=== PATIENT | female | born 1950 | race Caucasian/White ===

== ENCOUNTER 2016-09-08 04:01 | Inpatient (IN) | payer MEDICARE, BC ==
[~2016-09-08] VITALS: Ht 152.4 cm; Wt 73.6 kg
[~2016-09-08 04:01] MED LIST: BLOODPRESSURE PO; SIMVASTATIN5 MG PO; ZOLOFT100 MG PO
[2016-09-08 04:12] VITALS: BP 142/74
[2016-09-08 06:38] LABS: BASO % 0.4 % (0.0-1.0); EOS # 0.3 10*3/uL (0.0-0.4); EOS % 3.6 % (1.0-4.0); HEMATOCRIT 38.7 % (37.0-47.0); HEMOGLOBIN 12.8 g/dl (12.0-16.0); LYMPH # 1.1 10*3/uL (1.3-4.4); LYMPH % 14.5 % (27.0-41.0); MEAN CELL VOLUME 89.4 fl (81.0-99.0); MEAN CORPUSCULAR HGB 29.6 pg (27.0-31.0); MEAN CORPUSCULAR HGB CONC 33.1 g/dl (33.0-37.0); MEAN PLATELET VOLUME 9.9 fl (9.6-12.3); MONO # 0.5 10*3/uL (0.1-1.0); MONO % 5.9 % (3.0-9.0); NEUT # 5.9 10*3/uL (2.3-7.9); NEUT % 75.3 % (47.0-73.0); PLATELET COUNT AUTOMATED 142 10*3/uL (130-400); RED BLOOD COUNT 4.33 10*6/uL (4.10-5.10); RED CELL DISTRI WIDTH 13.9 % (0-14.5); WHITE BLOOD COUNT 7.8 10*3/uL (4.8-10.8)
[2016-09-08 06:49] LABS: BUN 16 mg/dl (7-24); C-REACTIVE PROTEIN 1.11 MG/DL (0-0.3); CARBON DIOXIDE 23 mmol/L (21-32); CHLORIDE 112 mmol/L (98-107); EST GLOM FILT AFRICAN AMERICAN > 60 ml/min; GLUCOSE 103 mg/dL (65-99); POTASSIUM 3.9 mmol/L (3.5-5.1); SODIUM 143 mmol/L (136-145)
[2016-09-08 07:05] VITALS: BP 125/65
[2016-09-08 07:19] LABS: INTERNATIONAL NORM RATIO 0.9 (2.0-3.5); PROTHROMBIN TIME 9.6 SECONDS (9.0-12.4)
[2016-09-08 07:22] LABS: ALBUMIN 3.5 gm/dl (3.1-4.5); ALKALINE PHOSPHATASE 107 U/L (45-117); BILIRUBIN, TOTAL 0.2 mg/dl (0.2-1.0); BUN 16 mg/dl (7-24); CARBON DIOXIDE 23 mmol/L (21-32); CHLORIDE 112 mmol/L (98-107); CHOLESTEROL 114 mg/dL (<200); EST GLOM FILT AFRICAN AMERICAN > 60 ml/min; HDL CHOLESTEROL 46 mg/dl (40-60); LDL CHOLESTEROL 11 mg/dL (9-159); MAGNESIUM 2.1 mg/dL (1.5-2.1); PHOSPHOROUS 2.7 mg/dL (2.5-4.9); POTASSIUM 3.9 mmol/L (3.5-5.1); SGOT/AST 20 IU/L (3-35); SGPT/ALT 29 U/L (12-78); SODIUM 144 mmol/L (136-145); TOTAL PROTEIN 6.8 gm/dL (6.4-8.2); TRIGLYCERIDES 286 mg/dl (<150); VLDL CHOLESTEROL 57 mg/dL (6-40)
[2016-09-08 07:36] LABS: GLUCOSE 101 mg/dL (65-99)
[2016-09-08 07:52] LABS: HEMOGLOBIN A1c 5.9 % (4.8-5.6)
[2016-09-08 08:00] VITALS: BP 137/70
[2016-09-08 08:12] LABS: FOLIC ACID > 24.00 ng/mL (>5.38)
[2016-09-08] MEDS ORDERED: LISINOPRIL10 M1 PO (09:36)
[2016-09-08] MEDS ORDERED: LIPITOR10 MG PO (09:37)
[2016-09-08] MEDS ORDERED: METAXALONE400 MG PO (09:39)
[2016-09-08 12:00] VITALS: BP 131/59
[2016-09-08 16:00] VITALS: BP 114/57
[2016-09-08 20:00] VITALS: BP 125/58
[2016-09-09] VITALS: BP 138/68
[2016-09-09 07:46] VITALS: BP 114/53
[2016-09-09 11:59] VITALS: BP 125/58
[2016-09-09] MEDS ORDERED: CYCLOBENZAPRINE10 MG PO (13:16)
[2016-09-09] MEDS ORDERED: PREDNISONE10 MG PO (13:16)
[2016-09-09] MEDS ORDERED: ACETAMINOPHEN-H1 TA2 PO (13:16)
== END 2016-09-09 14:48 | disposition home or self-care (01) | DRG 552 ==
LOC: ED 04:01 → EDHOLD 06:28 → 4E 06:28
PROVIDERS: Emergency Medicine Emergency Medical Services; Hospitalist
DX: M54.30 Sciatica, unspecified side (principal); I10 Essential (primary) hypertension; F32.9 Major depressive disorder, single episode, unspecified; M54.9 Dorsalgia, unspecified; Z87.81 Personal history of (healed) traumatic fracture; Z90.49 Acquired absence of other specified parts of digestive tract; Z83.6 Family history of other diseases of the respiratory system; Z83.3 Family history of diabetes mellitus; Z79.899 Other long term (current) drug therapy; Z72.0 Tobacco use

== ENCOUNTER 2022-08-17 13:37 | Emergency (ER) | payer MEDICARE ==
[~2022-08-17] VITALS: Ht 152.4 cm; Wt 65.8 kg
[~2022-08-17 13:37] MED LIST changes: +ACETAMINOPHEN-H1 TA2 PO; +CYCLOBENZAPRINE10 MG PO; +LIPITOR10 MG PO; +LISINOPRIL10 M1 PO; +METAXALONE400 MG PO; +PREDNISONE10 MG PO
== END 2022-08-17 16:30 | disposition home or self-care (01) ==
LOC: ED 13:37
DX: S61.412A Laceration without foreign body of left hand, initial encounter (principal); I10 Essential (primary) hypertension; E78.00 Pure hypercholesterolemia, unspecified; Z90.49 Acquired absence of other specified parts of digestive tract; Z98.890 Other specified postprocedural states; W26.0XXA Contact with knife, initial encounter; Y93.89 Activity, other specified; Y92.89 Other specified places as the place of occurrence of the external cause; Y99.8 Other external cause status

== ENCOUNTER 2025-01-18 20:55 | Emergency (ER) | payer MEDICARE ==
[~2025-01-18] VITALS: Ht 152.4 cm; Wt 55.3 kg
[2025-01-18] MEDS ORDERED: IOHEXOL 300 MG/ML 100 ML VIAL IV ONE (22:15)
[2025-01-18 22:35] LABS: BASO # 0.0 10*3/uL (0.0-0.1); BASO % 0.2 % (0.0-1.0); EOS # 0.1 10*3/uL (0.0-0.4); EOS % 0.6 % (1.0-4.0); MEAN CELL VOLUME 81.8 fl (81.0-99.0); MEAN CORPUSCULAR HGB 24.1 pg (27.0-31.0); MEAN PLATELET VOLUME 8.6 fl (9.6-12.3); MONO # 0.5 10*3/uL (0.1-1.0); MONO % 3.4 % (3.0-9.0); NEUT # 14.0 10*3/uL (2.3-7.9); NEUT % 89.6 % (47.0-73.0); NUCLEATED RED BLOOD CELL 0.0 % (0.0-0.0); NUCLEATED RED BLOOD CELL 0.0 10*3/uL (0.0-0.0); PLATELET COUNT AUTOMATED 282 10*3/uL (130-400); RED CELL DISTRI WIDTH 16.8 % (0-14.5)
[2025-01-18 22:58] LABS: BUN 14 mg/dl (9-23); SGPT/ALT 19 U/L (5-49)
[2025-01-18 23:28] LABS: BILIRUBIN Negative (Negative); BLOOD Negative (Negative); CLARITY Clear (Clear); COLOR Dark Yellow (Yellow); KETONE Negative (Negative); LEUKO ESTERASE Trace (Negative); NITRITE Positive (Negative); PH 6.5 (4.5-8.0); SPECIFIC GRAVITY <= 1.005 (1.001-1.030); UROBILINOGEN 1.0 E.U./dl (0.0-1.0)
[2025-01-18] MEDS ORDERED: Ondansetron Hydrochloride 4 MG/2 ML VIAL IV ONE (23:35)
[2025-01-18 23:38] LABS: BACTERIA 1+; MUCOUS 1+; RBC 0-2 rbc/hpf (0-2)
[2025-01-19] MEDS ORDERED: CIPRO500 MG PO (03:35)
== END 2025-01-19 04:00 | disposition home or self-care (01) ==
LOC: ED 20:55
PROVIDERS: Nurse Practitioner Family
DX: C18.4 Malignant neoplasm of transverse colon (principal); D72.829 Elevated white blood cell count, unspecified; E44.0 Moderate protein-calorie malnutrition; D64.9 Anemia, unspecified; N39.0 Urinary tract infection, site not specified; I10 Essential (primary) hypertension; E78.00 Pure hypercholesterolemia, unspecified; G47.00 Insomnia, unspecified; F41.9 Anxiety disorder, unspecified; Z90.49 Acquired absence of other specified parts of digestive tract